=== PATIENT | male | born 1985 | race Hispanic/Latino ===

== ENCOUNTER 2023-09-05 02:06 | Emergency (ER) | payer OTHER ==
[~2023-09-05] VITALS: Ht 160 cm; Wt 59.0 kg
[2023-09-05] MEDS ORDERED: CEFTRIAXONE 1G VIAL IV STA (02:31)
[2023-09-05] MEDS ORDERED: AMOX1TAB16 PO (03:30)
[2023-09-05 04:20] VITALS: BP 134/82; PULSE 84; RESP 16; O2SAT 98
[2023-09-05] MEDS: CEFTRIAXONE 1G VIAL IM ONE (04:25)
== END 2023-09-05 04:24 | disposition home or self-care (01) ==
LOC: EDH 02:06
DX: S81.851D Open bite, right lower leg, subsequent encounter (principal); W54.0XXD Bitten by dog, subsequent encounter
CPT/HCPCS: 99283; 96372; J0696